=== PATIENT | female | born 1940 | race Caucasian/White ===

== ENCOUNTER 2016-07-17 21:46 | Inpatient (IN) | payer OTHER ==
--- NOTE | 2016-07-17 22:03 | EDPHY ---
H & P Stated Complaint: abd pain, n/V, bloody stools HPI/ROS: HPI CHIEF COMPLAINT: Nausea, vomiting, abdominal pain, bright red blood per rectum HISTORY OF PRESENT ILLNESS: This patient very pleasant 76-year-old female, significant past medical history multiple myeloma, presents emergency room with persistent nausea vomiting diarrhea. Patient tells me that around 9:00 p.m. last night she was up in black cough she thought she got sick from something she ate she had multiple episodes of nonbilious nonbloody vomiting and then started having watery diarrhea. The nausea vomiting and diarrhea has persisted throughout today multiple episodes she then started having blood per rectum bright red blood when she wipes and then also noted darker blood in the bottom of the toilet. She denies black tarry stools. She does endorse abdominal pain most focally located in left lower quadrant. No history of GI bleed, no history of diverticulitis or diverticulosis. Past Medical History: Multiple myeloma Past Surgical History: Cystocele surgery Social History: denies use of drugs alcohol tobacco products, lives locally in our [place] Family History: Noncontributory ROS REVIEW OF SYSTEMS: A comprehensive 10 point review of systems is otherwise negative aside from elements mentioned in the history of present illness. Exam Constitutional triage nursing summary reviewed, vital signs reviewed, awake/ alert. Eyes normal conjunctivae and sclera, EOMI, PERRLA. HENT normal inspection, atraumatic, moist mucus membranes, no epistaxis, neck supple/ no meningismus, no raccoon eyes. Respiratory clear to auscultation bilaterally, normal breath sounds, no respiratory distress, no wheezing. Cardiovascular rate normal, regular rhythm, no murmur, no edema, distal pulses normal. Gastrointestinal focal tenderness in left lower quadrant , no rebound, no guarding, normal bowel sounds, no distension, no pulsatile mass. Genitourinary no CVA tenderness. Musculoskeletal no midline vertebral tenderness, full range of motion, no calf swelling, no tenderness of extremities, no meningismus, good pulses, neurovascularly intact. Skin pink, warm, & dry, no rash, skin atraumatic. Neurologic awake, alert and oriented x 3, AAOx3, moves all 4 extremities equally, motor intact, sensory intact, CN II-XII intact, normal cerebellar, normal vision, normal speech. Psychiatric normal mood/affect. Heme/Lymph/Immune no lymphadenopathy. Differential diagnosis includes but is not limited to and in no particular order : diverticulitis, diverticulosis Bowel obstruction, appendicitis, gallbladder disease, diverticulitis, colitis, enteritis, perforated viscus, gastritis, GERD , esophagitis, urinary tract infection, pyelonephritis, kidney stones Medical Decision Making: This patient had an IV established will obtain blood work, rectal exam, CT scan abdomen pelvis with IV contrast Re-evaluation: 2323; patient is currently in CT getting a CT abdomen pelvis with IV contrast to rule out acute diverticulitis. She is focally tender left lower quadrant. This may be causing her abdominal pain, white count and blood in her stool. It is noted the lactic acid is elevated 2.9. She received 2 L of normal saline. Lactic acid will be repeated. CT scan of the abdomen pelvis with IV contrast The results of the study are shows significant descending colon and rectosigmoid colon colitis, does not believe to be ischemic given how well the aorta looks. (minimally calcified) The study was read by Dr. Nicholas I viewed the images myself on the PACS system. 2351; I did update this patient her at bedside and explained that she has significant colitis on her CT scan. She understands she will need to be admitted to the hospital for IV antibiotics IV fluids bowel rest nothing by mouth. I spoke with the hospital service Dr. Baker who agrees to admit this patient. I did order stool studies of note this patient does tell me that she has recently on antibiotics for dental procedure it is possible that she has significant colitis with C diff. I have ordered a C diff study. At this time she is hemodynamically stable no acute distress resting comfortably she does complain of nausea I have ordered her another round of Phenergan. Source: Patient - Personal History Current Tetanus Diphtheria and Acellular Pertussis (TDAP): Yes - Medical/Surgical History Hx Asthma: No Hx Chronic Respiratory Disease: No Hx Diabetes: No Hx Cardiac Disease: No Hx Renal Disease: No Hx Cirrhosis: No Hx Alcoholism: No Hx HIV/AIDS: No Hx Splenectomy or Spleen Trauma: No Other PMH: mutlipe myaloma. dvt left leg. cystocele repair 2017 - Social History Smoking Status: Never smoked Constitutional: Initial Vital Signs Temperature (C) 37.1 C 07/17/16 21:50 Heart Rate 91 07/17/16 21:50 Respiratory Rate 20 07/17/16 21:50 Blood Pressure 155/102 H 07/17/16 21:50 O2 Sat (%) 91 L 07/17/16 21:50 O2 Delivery Mode Room Air Allergies/Adverse Reactions: No Known Allergies Allergy (Unverified 07/17/16 21:50) Home Medications: Medication Instructions Recorded Dexamethasone 07/01/14 Glucosamine Chondroitin Cap 07/01/14 Lisinopril 07/01/14 Lovastatin 07/01/14 Preservision Softgel 07/01/14 Revlimid 07/01/14 Tums 500MG (OTC) 07/01/14 Vitamin D3 07/01/14 Xarelto 15mg (RX) 07/01/14 Zometa 07/01/14 Medical Decision Making - Data Points Laboratory Results: Laboratory Results 07/17/16 22:00 07/17/16 22:00 07/17/16 22:00 WBC 14.93 H 10^3/uL (3.80-9.50) RBC 4.90 10^6/uL (4.18-5.33) Hgb 15.9 g/dL (12.6-16.3) Hct 47.7 H % (38.0-47.0) MCV 97.3 fL (81.5-99.8) MCH 32.4 pg (27.9-34.1) MCHC 33.3 g/dL (32.4-36.7) RDW 14.0 % (11.5-15.2) Plt Count 180 10^3/uL (150-400) MPV 11.3 fL (8.7-11.7) Neut % (Auto) 69.8 % (39.3-74.2) Lymph % (Auto) 12.5 L % (15.0-45.0) Garden % (Auto) 17.1 H % (4.5-13.0) Eos % (Auto) 0.0 L % (0.6-7.6) Baso % (Auto) 0.2 L % (0.3-1.7) Nucleat RBC Rel Count 0.0 % (0.0-0.2) Absolute Neuts (auto) 10.43 H 10^3/uL (1.70-6.50) Absolute Lymphs (auto) 1.86 10^3/uL (1.00-3.00) Absolute Monos (auto) 2.55 H 10^3/uL (0.30-0.80) Absolute Eos (auto) 0.00 L 10^3/uL (0.03-0.40) Absolute Basos (auto) 0.03 10^3/uL (0.02-0.10) Absolute Nucleated RBC 0.00 10^3/uL (0-0.01) Immature Gran % 0.4 % (0.0-1.1) Immature Gran # 0.06 10^3/uL (0.00-0.10) PT 13.5 SEC (12.0-15.0) INR 1.04 (0.83-1.16) APTT 22.4 L SEC (23.0-38.0) VBG Lactic Acid 2.9 H mmol/L (0.7-2.1) Sodium 142 mEq/L (134-144) Potassium 3.6 mEq/L (3.5-5.2) Chloride 106 mEq/L (97-110) Carbon Dioxide 24 mEq/l (22-31) Anion Gap 12 mEq/L (8-16) BUN 18 mg/dL (7-23) Creatinine 0.7 mg/dL (0.6-1.0) Estimated GFR > 60 Glucose 175 H mg/dL (70-100) Calcium 8.8 mg/dL (8.5-10.4) Total Bilirubin 1.4 mg/dL (0.1-1.4) Conjugated Bilirubin 0.1 mg/dL (0.0-0.5) Unconjugated Bilirubin 1.3 H mg/dL (0.0-1.1) AST 15 IU/L (14-46) ALT 30 IU/L (9-52) Alkaline Phosphatase 77 IU/L (38-126) Total Protein 5.9 L g/dL (6.3-8.2) Albumin 3.4 L g/dL (3.5-5.0) Lipase 96.0 IU/L (23-300) Medications Given: Discontinued Medications Sodium Chloride (Ns) 1,000 mls @ 0 mls/hr IV ONCE ONE PRN Reason: Wide Open Stop: 07/17/16 22:08 Last Admin: 07/17/16 22:14 Dose: 1,000 mls Sodium Chloride (Ns) 1,000 mls @ 0 mls/hr IV ONCE ONE PRN Reason: Wide Open Stop: 07/17/16 22:42 Last Admin: 07/17/16 22:43 Dose: 1,000 mls Ondansetron HCl (Zofran) 4 mg IVP EDNOW ONE Stop: 07/17/16 22:08 Last Admin: 07/17/16 22:15 Dose: 4 mg Departure - Departure Disposition: [facility] Acute Clinical Impression: Non-specific colitis Condition: Fair
[2016-07-17] MEDS ORDERED: ONDANSETRON 4 MG/2 ML VIAL IVP ONE (22:07)
[2016-07-17] MEDS ORDERED: NS 1,000 ML IV ONE ×2 (22:07→22:41)
[2016-07-17 22:20] LABS: % IMMATURE GRANULYOCYTES 0.4 % (0.0-1.1); ABSOLUTE IMMATURE GRANULOCYTES 0.06 10^3/uL (0.00-0.10); ADD DIFF? NO; ADD MORPH? NO; ADD SCAN? NO; ATYPICAL LYMPHOCYTE FLAG 0 (0-99); FRAGMENT RBC FLAG 0 (0-99); HEMATOCRIT 47.7 % (38.0-47.0); HEMOGLOBIN 15.9 g/dL (12.6-16.3); LEFT SHIFT FLG 10 (0-99); LIPEMIA HEMOLYSIS FLAG 80 (0-99); MEAN CELL HEMOGLOBIN 32.4 pg (27.9-34.1); MEAN CELL HEMOGLOBIN CONCENTR. 33.3 g/dL (32.4-36.7); MEAN CELL VOLUME 97.3 fL (81.5-99.8); MEAN PLATELET VOLUME 11.3 fL (8.7-11.7); PLATELET CLUMPS FLAG 10 (0-99); PLATELET COUNT 180 10^3/uL (150-400)
[2016-07-17] MEDS ORDERED: IOPAMIDOL (ISOVUE-300) 100 ML BTL IV ONE (22:36)
[2016-07-17 22:42] LABS: ALANINE AMINOTRANSFERASE 30 IU/L (9-52); ALKALINE PHOSPHATASE 77 IU/L (38-126); ASPARTATE AMINOTRANSFERASE 15 IU/L (14-46); BILIRUBIN,TOTAL 1.4 mg/dL (0.1-1.4); BILIRUBIN-CONJUGATED 0.1 mg/dL (0.0-0.5); BILIRUBIN-UNCONJUGATED 1.3 mg/dL (0.0-1.1); CALCIUM 8.8 mg/dL (8.5-10.4)
[2016-07-17 22:47] LABS: APTT 22.4 SEC (23.0-38.0); INR 1.04 (0.83-1.16); PROTIME(PATIENT) 13.5 SEC (12.0-15.0)
[2016-07-17 23:17] LABS: ALBUMIN 3.4 g/dL (3.5-5.0); ANION GAP 12 mEq/L (8-16); CARBON DIOXIDE 24 mEq/l (22-31); CHLORIDE 106 mEq/L (97-110); CREATININE 0.7 mg/dL (0.6-1.0); GLOMERULAR FILTRATION RATE > 60; GLUCOSE 175 mg/dL (70-100); POTASSIUM 3.6 mEq/L (3.5-5.2); SODIUM 142 mEq/L (134-144); TOTAL PROTEIN 5.9 g/dL (6.3-8.2)
[2016-07-17] MEDS ORDERED: CIPROFLOXACIN 400 MG/DEXTROSE 200 ML IV ONE (23:36)
[2016-07-17] MEDS ORDERED: METRONIDAZOLE 500 MG/NACL/100 ML BAG IV ONE (23:46)
[2016-07-17] MEDS ORDERED: PROMETHAZINE HCL 25 MG/ML INJ IVP ONE (23:51)
--- NOTE | 2016-07-18 00:07 | CT ---
CT Scan of the Abdomen and Pelvis (With Contrast) at 2329 hours History: Abdominal pain, left lower quadrant Technique: Axial computed tomographic images of the abdomen and pelvis were obtained with the unevent ful intravenous administration of 80 mL Isovue-300 contrast. No oral or rectal contrast which limits the study. Dose reduction techniques were utilized. CT Abdomen Findings: Lung bases: Linear scarring bilateral lower lobes without pleural effusion Liver: Left lobe of liver peripheral nodular enhancing 4 x 3 cm hemangioma. Subcentimeter cysts in th e right lobe of liver.. Biliary system: No obstruction. Spleen: Normal. Pancreas: Normal. Adrenals: Normal. Kidneys: No solid masses. Questionable mild bilateral hydronephrosis without ureterolithiasis.. Abdominal Aorta: No aneurysm. Circumferential wall thickening of the entire descending and sigmoid colon with pericolonic inflammat ory changes and fluid especially in the paracolic gutter and descending colon region consistent with severe descending and sigmoid nonspecific colitis. No drainable abscess or pneumoperitoneum. CT Pelvis Findings: Circumferential wall thickening of the proximal sigmoid colon. Calcification of t he atrophic uterus versus postsurgical changes. No bladder calculi. Calcified phleboliths in the pelv is. No drainable abscess. No small bowel obstruction. Multiple severe prior compression fractures wit h kyphoplasty's T11, T12, L1, and L4 vertebral bodies. Degenerative anterolisthesis at L3-L4. Impression: 1. Severe nonspecific colitis of the descending and sigmoid colon with pericolonic inflammatory gaspar es. Recommend GI consult and follow-up colonoscopy. 2. No drainable abscess, small bowel obstruction or pneumoperitoneum. 3. Benign hemangioma in the left lobe liver measuring 4 x 3 cm. Findings and recommendations discussed with Emergency Department physician, Dr. Acevedo at 2340 hour, today. Final report concurs with initial preliminary interpretation.
[2016-07-18] MEDS ORDERED: NS 1,000 ML IV ONE (00:30)
[2016-07-18] MEDS ORDERED: ACETAMINOPHEN 325 MG TAB PO PRN (00:38)
[2016-07-18] MEDS ORDERED: ONDANSETRON DISINTEGRATING 4 MG TAB PO PRN (00:38)
[2016-07-18] MEDS ORDERED: PROMETHAZINE HCL 25 MG/ML INJ IVP PRN (00:38)
[2016-07-18] MEDS ORDERED: ONDANSETRON 4 MG/2 ML VIAL IVP PRN (00:38)
--- NOTE | 2016-07-18 01:43 | GHP ---
[f rep st] HISTORY AND PHYSICAL DATE OF ADMISSION: 07/17/2016 CHIEF COMPLAINT: Abdominal pain. HISTORY OF PRESENT ILLNESS: This is a 76-year-old female with a history of multiple myeloma, presents with abdominal pain. This initially started at 9:00 p.m. last night with nausea and vomiting. She had multiple episodes of diarrhea. This turned bloody this morning. She has not been able to keep anything down since this episode began. She has no sick contacts. Possibly a questionable burrito a few days ago. Nobody else is sick around her. She has no history of arrhythmias. No history of inflammatory bowel disease. She tells me she is feeling dizzy, but is not having any shortness of breath or chest pain. PAST MEDICAL/SURGICAL HISTORY: 1. DVT a few years ago, on Xarelto. 2. Multiple myeloma. 3. Hypertension. 4. Hyperlipidemia. 5. Cystocele surgery. MEDICATIONS: Please see medication reconciliation. ALLERGIES: None. FAMILY HISTORY: No multiple myeloma. SOCIAL HISTORY: She is accompanied by her . She does not drink or smoke. REVIEW OF SYSTEMS: Ten-point review of systems is conducted and is negative, except per HPI. PHYSICAL EXAM: VITAL SIGNS: Blood pressure is 140/88, heart rate is 75, respiration rate 16, saturation 91% on room air, temperature is 37.1. GENERAL: The patient is a very pleasant female, who appears comfortable, lying on bed, in no acute distress. HEENT shows her to be atraumatic, normocephalic. CARDIOVASCULAR: Regular rate and rhythm. No murmurs, rubs, or gallops. PULMONARY: Lungs are clear bilaterally. ABDOMEN shows her to have normal bowel sounds. She is soft in all 4 quadrants. She is tender to palpation, mostly in the left abdomen. She has no rebound or guarding. Non-peritoneal abdomen. SKIN: No rash. : no [place]. NEUROLOGIC shows her to be alert and oriented x3. She is moving all extremities. PSYCHIATRIC: Normal mood and affect. LABS: White count is 14.9. INR is 1. Venous lactate is 2.9, repeat is also 2.9. Basic metabolic panel is normal. LFTs are relatively unremarkable. DATA: 1. I discussed with Dr. Acevedo. We will admit to med/surg. 2. I personally viewed and interpreted her abdominal CT scan as well as viewed Dr. Nicholas's report. It shows left-sided descending colitis which is severe with no drainable abscess. No pneumoperitoneum. She has a benign liver hemangioma. ASSESSMENT AND PLAN: A 76-year-old female presents with colitis. 1. Colitis: Suspect that this will be infectious. Stool studies have been sent including Clostridium difficile and PCR. Also, consider ischemic, though it does not appear ischemic on by Dr. Nicholas's interpretation. Consider inflammatory, though the time course for inflammatory did not seem to fit. She will be empirically treated with antibiotics. Her persistent lactic acidosis is concerning. If this does not decrease, we will consult General Surgery, though her abdominal exam is reassuring. I note that she is on immunosuppressants. 2. Multiple myeloma: She is on Revlimid and dexamethasone. We will hold these for now. We will monitor for signs of adrenal insufficiency, which she does not currently have. 3. History of a deep venous thrombosis: This occurred on Revlimid. Given acute illness, I think it is reasonable to bridge her with heparin for now. I have written her to have Lovenox starting tomorrow morning at full treatment doses. 4. Hypertension. 5. Hyperlipidemia. 6. Code status is full. She does have a living will. ADDENDUM: Lactate rising slowly despite IVF. Dr Javed consulted - may need colectomy. Hold lovenox, transfer to SDU, follow lactates. /[id number]/MODL MTDD
--- NOTE | 2016-07-18 03:29 | SOAPPROG ---
SOAP Progress Note Assessment/Plan: Assessment: 76 FEMALE WITH SEVERE LEFT COLITIS SEEN ON CT WITH ELEVATED LACTATE AND WBC 15K TENDER RLQ/ HAVING BLOODY STOOLS/ NO PRIOR HX ON CHEMO FOR MYELOMA PREVIOUS ISAÍAS AND BSO WITH CYSTOCELE, TKA/ NO CARDIAC HX AND NO AFIB EXCELLENT PULSES THRUOUT/ CT SHOWS OCCLUDED SHARMIN I BELIEVE HIGH RISK SHE WILL NEED COLECTOMY PROBABLE ISCHEMIC COLITIS Plan: OBS ON ABX/ IVS/ NPO/ PROB FLEX SIG 07/18/16 03:23 Objective: Vital Signs Temp Pulse Resp BP Pulse Ox 37.1 C 72 16 117/70 95 07/17/16 21:50 07/18/16 01:30 07/18/16 01:30 07/18/16 01:30 07/18/16 01:30 07/16/16 07/17/16 07/18/16 05:59 05:59 05:59 Intake Total 1999 Balance 1999 PT 13.5 SEC (12.0-15.0) 07/17/16 22:00 INR 1.04 (0.83-1.16) 07/17/16 22:00 ICD10 Worksheet Patient Problems: Problems Problem Status Diagnosed Colitis Acute
[2016-07-18 03:39] LABS: COLOR YELLOW; LEUKOCYTE ESTERASE,URINE NEGATIVE (NEGATIVE); NITRITE,URINE NEGATIVE (NEGATIVE)
[2016-07-18 03:48] LABS: MUCUS TRACE /lpf (NONE-1+)
[2016-07-18 05:38] LABS: % IMMATURE GRANULYOCYTES 0.2 % (0.0-1.1); ABSOLUTE IMMATURE GRANULOCYTES 0.02 10^3/uL (0.00-0.10); ADD DIFF? NO; ADD MORPH? NO; ADD SCAN? NO; ATYPICAL LYMPHOCYTE FLAG 0 (0-99); FRAGMENT RBC FLAG 0 (0-99); HEMATOCRIT 38.4 % (38.0-47.0); HEMOGLOBIN 12.8 g/dL (12.6-16.3); LEFT SHIFT FLG 10 (0-99); LIPEMIA HEMOLYSIS FLAG 80 (0-99); MEAN CELL HEMOGLOBIN CONCENTR. 33.3 g/dL (32.4-36.7); PLATELET CLUMPS FLAG 0 (0-99); PLATELET COUNT 127 10^3/uL (150-400); RED BLOOD CELL COUNT 3.88 10^6/uL (4.18-5.33); RED CELL DISTRIBUTION WIDTH 14.3 % (11.5-15.2)
[2016-07-18 06:02] LABS: ALANINE AMINOTRANSFERASE 26 IU/L (9-52); ALBUMIN 2.5 g/dL (3.5-5.0); ALKALINE PHOSPHATASE 52 IU/L (38-126); ANION GAP 6 mEq/L (8-16); ASPARTATE AMINOTRANSFERASE 12 IU/L (14-46); CALCIUM 6.8 mg/dL (8.5-10.4); CARBON DIOXIDE 26 mEq/l (22-31); CHLORIDE 111 mEq/L (97-110); CREATININE 0.6 mg/dL (0.6-1.0); GLOMERULAR FILTRATION RATE > 60; GLUCOSE 110 mg/dL (70-100); POTASSIUM 3.4 mEq/L (3.5-5.2); SODIUM 143 mEq/L (134-144); TOTAL PROTEIN 4.6 g/dL (6.3-8.2)
[2016-07-18] MEDS: ERTAPENEM 1 GM in NS 100 ML IV SCH (08:47)
[2016-07-18] MEDS ORDERED: ENOXAPARIN 80 MG/0.8 ML SYR SC SCH (09:00)
--- NOTE | 2016-07-18 09:39 | HOSPPROG ---
Hospitalist Progress Note Assessment/Plan: * sudden left-sided abdominal pain with severe colitis on CT scan * symptoms would seem to be consistent with ischemic colitis although patient seems to be improving. Her lactate is now normalized and her exam is fairly benign. * Acute infectious etiologies are also possible * I discussed the case with Gastroenterology will come see the patient consider flex sig. * I think we can monitor her closely for now rather than immediate surgery but will discuss with surgery * history of multiple myeloma * holding chemotherapy * recent steroid use with chemotherapy * will try to find out how long she has been on this. * She is off of it for now which is reasonable considering possible surgery * will continue to watch closely for any adrenal insufficiency * history of DVT * holding Lovenox currently until we discuss with surgery and GI determined if endoscopy will be done * Addendum * discussed case with Dr Campbell - says Rivlamed can cause thrombotic events and she will be taken off it. Subjective: Having some left pleural abdominal pain but not severe Objective: Vital Signs Temp Pulse Resp BP Pulse Ox 36.8 C 68 13 107/64 100 07/18/16 07:18 07/18/16 07:18 07/18/16 07:18 07/18/16 07:18 07/18/16 07:18 Laboratory Results 07/18/16 05:25 07/18/16 05:25 07/17/16 07/18/16 07/19/16 05:59 05:59 05:59 Intake Total 3150 Balance 3150 PT 13.5 SEC (12.0-15.0) 07/17/16 22:00 INR 1.04 (0.83-1.16) 07/17/16 22:00 - Physical Exam Constitutional: no apparent distress, appears nourished, not in pain Eyes: anicteric sclera, EOMI Ears, Nose, Mouth, Throat: moist mucous membranes, hearing normal, ears appear normal Cardiovascular: regular rate and rhythym, no murmur, rub, or gallop Gastrointestinal: normoactive bowel sounds, other ( mild left sided tenderness no rebound or guarding) Skin: warm Neurologic: AAOx3 Psychiatric: interacting appropriately, not anxious, not encephalopathic, thought process linear ICD10 Worksheet Patient Problems: Problems Problem Status Diagnosed Colitis Acute
--- NOTE | 2016-07-18 10:08 | SOAPPROG ---
SOAP Progress Note Assessment/Plan: Assessment: 76yo female with colitis, multiple myeloma feel better, have not passed any gas PE awake alert, appears very comfortable chest CTA B/L abdomen soft, appears distended but patient reports that it appears normal to her, her baseline. Bowel sounds upon auscultation. labs improved (lactate, WBC) Plan: appreciate pending GI consult, will continue to follow closely, discuss with Dr Javed 07/18/16 10:05 Objective: Vital Signs Temp Pulse Resp BP Pulse Ox 36.8 C 68 13 107/64 100 07/18/16 07:18 07/18/16 07:18 07/18/16 07:18 07/18/16 07:18 07/18/16 07:18 Laboratory Results 07/18/16 05:25 07/18/16 05:25 07/17/16 07/18/16 07/19/16 05:59 05:59 05:59 Intake Total 3150 Balance 3150 PT 13.5 SEC (12.0-15.0) 07/17/16 22:00 INR 1.04 (0.83-1.16) 07/17/16 22:00 ICD10 Worksheet Patient Problems: Problems Problem Status Diagnosed Colitis Acute
[2016-07-18] MEDS: NS 1,000 ML IV SCH (12:07)
--- NOTE | 2016-07-18 13:20 | GCON ---
[f rep st] CONSULTATION DATE OF CONSULTATION: 07/18/2016 REFERRING PHYSICIAN: Adam Rosado MD CHIEF COMPLAINT: Abdominal pain. HISTORY OF PRESENT ILLNESS: I am asked to see this patient in consultation by Dr. Rosado for the geoffrey benson complaint of abdominal pain. As you know, she is a pleasant 76-year-old, who generally has issues more with constipation, was in her usual state of good health until 2 days ago when she developed kisha e dizziness, and then this was followed by some abdominal pain and bloody diarrhea. She states that the pain was not severe, but she felt it on the left side. Notes that diarrhea is generally uncommon for her. She has never had issues with bleeding before. She has had a colonoscopy by my partner, Olena Costa, a few years ago, although the results are not immediately available. She states that this w as normal. The patient does have a history of blood clotting with DVT and is on Xarelto. She has un derlying multiple myeloma. Today, she feels overall better, although still passing blood. There is no family history of inflammatory bowel disease. The patient has no history of IBD. ALLERGIES: None. CURRENT MEDICATIONS: The patient, in the hospital, is receiving Tylenol, ertapenem, lisinopril, Zofr an, Pravachol, promethazine p.r.n. OUTPATIENT MEDICATIONS: Include lovastatin, lisinopril, glucosamine, Decadron, Revlimid, vitamin D, calcium, Xarelto, and Estrace. PAST MEDICAL HISTORY: Notable for multiple myeloma, DVT a few years ago, on Xarelto, hypertension, h yperlipidemia, cystocele surgery. FAMILY HISTORY: Negative for colon cancer or inflammatory bowel disease. SOCIAL HISTORY: Does not drink or smoke. REVIEW OF SYSTEMS: Review of 10 systems, including general, psych, HEENT, cardiovascular, pulmonary, renal, hematologic, musculoskeletal, derm, neurologic discussed and otherwise negative except noted above. PHYSICAL EXAMINATION: VITAL SIGNS: Afebrile at 36.8, BP 107/64, pulse 68. HEENT: PERRLA. EOMI: No scleral icterus. Oropharynx is normal. NECK: Supple without lymphadenopathy. No thyromegaly. CARDIAC: Regular rate and rhythm, S1, S2 normal. PMI detected in normal location. Chest: Clear to auscultation bilaterally, normal chest excursion. ABDOMEN: Slightly distended, but soft. There is mild tenderness to palpation in the left upper quadrant, but no rebound. EXTREMITIES: Normal. WARREN ROLOGICAL: Nonfocal. IMAGING: CT scan from 07/17/2016 shows severe nonspecific colitis involving the descending and sigmo id colon with pericolonic inflammatory changes. No abscess. LABORATORY DATA: Today, BUN and creatinine are 13.6, sodium 143, potassium 2.4, AST 12, ALT 26, jakub line phosphatase 52, total bilirubin I.0. Pro time is 13.5 with an INR of 1.04. Hematocrit is 38.4 with hemoglobin of 12.8, white count 8.37, platelets 127. ASSESSMENT AND PLAN: Patient with acute onset of abdominal pain followed by bloody diarrhea with inf lammatory changes involving the sigmoid and descending colon on CT scan. I think most likely, this r epresents ischemic colitis. The patient does have underlying multiple myeloma and hypercoagulable st ate, although she has been on Xarelto. Often, ischemic colitis is not embolic, but may be related to vascular spasm. Clinically, she is doing much better today, although we will need to monitor closel y. Overall, she would be high risk for endoscopy, and generally prefer to avoid endoscopy in the set ting of acute ischemia due to increased risk for complications such as perforation, and if she clinic ally responds to supportive care would postpone colonoscopy, however, if her condition worsens we cou ld consider a partial flexible sigmoidoscopy, if this is thought to be helpful, although if her condi tion worsens, we will need to consider surgical options. I would favor holding Xarelto for now, as s he is still bleeding, but would agree to Lovenox in the meantime, as we monitor her clinically. We w ill follow. Thank you for this consult. /[id number]/MODL
--- NOTE | 2016-07-18 18:55 | CT ---
CT Head Without Contrast, 18:34 History: Double vision, dizziness, lightheadedness. Technique: Noncontrast images through the head. Soft tissue and bone window evaluation is performed. Dose reduction techniques were utilized. Findings: There is asymmetric hypodensity in the anterior inferior right cerebellum that may represen t evidence of a cerebellar infarction or potentially an occult cerebellar mass lesion. There is no ev idence for hemorrhage, hydrocephalus or abnormal intracranial calcification. No subarachnoid blood is identified. There is no midline shift. The ambient cistern is patent. Bone window evaluation reveals normally aerated paranasal and mastoid sinuses and both middle ears. There is no evidence of pneumoc ephalus. There are multiple small punched out holes in the calvarium raising the possibility of multi ple myeloma. Impression: 1. Possible right anterior inferior cerebellar ischemic infarction. Consider MRI for furt her evaluation. 2. Lytic calvarial lesions raising the possibility of multiple myeloma vs lytic metastatic disease of other etiology. Results called to the patient's 2N nurse at 18:50 PM Final results are concordant with the initial interpretation. General information for patients regarding this examination can be found at [email or web address]. If you have questions or comments about this report, please contact me at [phone] (hospital) or [phone] (cell).
--- NOTE | 2016-07-18 19:58 | HOSPPROG ---
Hospitalist Progress Note Assessment/Plan: cross cover: Called by nursing with CT scan showing concerns for possible ischemic stroke. Met with patient, she has been having double vision all day today, possibly yesterday too. No numbness or weakness. Double vision improves if she looks with only one eye, on either side. Also having active GI bleeding. Not TPA candidate. Sxs fairly mild. Head CT equivocal. Ordered brain MRI for further evaluation, explained this to patient and her . Objective: Vital Signs Temp Pulse Resp BP Pulse Ox 36.6 C 72 22 H 116/75 96 07/18/16 16:00 07/18/16 16:00 07/18/16 16:00 07/18/16 16:00 07/18/16 16:00 Microbiology 07/18/16 11:06 Gastrointestinal Tract Panel (PCR) - Final Stool Laboratory Results 07/18/16 05:25 07/18/16 05:25 07/17/16 07/18/16 07/19/16 05:59 05:59 05:59 Intake Total 3150 1448 Balance 3150 1448 PT 13.5 SEC (12.0-15.0) 07/17/16 22:00 INR 1.04 (0.83-1.16) 07/17/16 22:00 ICD10 Worksheet Patient Problems: Problems Problem Status Diagnosed Colitis Acute
--- NOTE | 2016-07-18 23:06 | MR ---
MRI brain without contrast. HISTORY: Double vision. Possible CVA on head CT. COMPARISON: CT performed earlier today. TECHNIQUE: MRI is performed of the brain using a 3 [employer] MRI system. Sagittal and axial imaging was o btained with standard imaging sequences. FINDINGS: There are a few small foci of abnormal signal intensity in the deep hemispheric and subcort ical white matter bilaterally, supratentorial. These are visualized a small foci of increased signal intensity on FLAIR and T2-weighted imaging. No evidence for mass effect or diffusion restriction. No other findings for intracranial mass, hemorrhage, or infarct. The ventricles, sulci, and cisterns are within normal limits for the patient's age. No evidence for an extra-axial fluid collection. Possibl e subtle lesion seen in the skull corresponding to the lytic lesion seen on CT, nonspecific. IMPRESSION: 1. Few small foci of abnormal signal intensity deep hemispheric white matter bilaterally which are no nspecific and can be seen with small vessel ischemic disease. No evidence for acute infarct. 2. Possible skull lesions corresponding to the lytic lesion seen on CT with differential given on the prior CT report.
[2016-07-19 06:33] LABS: % IMMATURE GRANULYOCYTES 0.4 % (0.0-1.1); ABSOLUTE IMMATURE GRANULOCYTES 0.03 10^3/uL (0.00-0.10); ADD DIFF? NO; ADD MORPH? NO; ADD SCAN? NO; ATYPICAL LYMPHOCYTE FLAG 0 (0-99); FRAGMENT RBC FLAG 0 (0-99); HEMATOCRIT 37.3 % (38.0-47.0); HEMOGLOBIN 12.3 g/dL (12.6-16.3); LEFT SHIFT FLG 0 (0-99); LIPEMIA HEMOLYSIS FLAG 80 (0-99); MEAN CELL HEMOGLOBIN 32.7 pg (27.9-34.1); MEAN CELL VOLUME 99.2 fL (81.5-99.8); MEAN PLATELET VOLUME 10.6 fL (8.7-11.7); PLATELET CLUMPS FLAG 0 (0-99); PLATELET COUNT 107 10^3/uL (150-400); RED BLOOD CELL COUNT 3.76 10^6/uL (4.18-5.33); RED CELL DISTRIBUTION WIDTH 14.1 % (11.5-15.2)
[2016-07-19 07:32] LABS: ALANINE AMINOTRANSFERASE 25 IU/L (9-52); ALBUMIN 2.4 g/dL (3.5-5.0); ALKALINE PHOSPHATASE 56 IU/L (38-126); ANION GAP 7 mEq/L (8-16); ASPARTATE AMINOTRANSFERASE 10 IU/L (14-46); BILIRUBIN,TOTAL 0.9 mg/dL (0.1-1.4); CALCIUM 6.7 mg/dL (8.5-10.4); CARBON DIOXIDE 27 mEq/l (22-31); CHLORIDE 107 mEq/L (97-110); CREATININE 0.6 mg/dL (0.6-1.0); GLOMERULAR FILTRATION RATE > 60; GLUCOSE 77 mg/dL (70-100); SODIUM 141 mEq/L (134-144); TOTAL PROTEIN 4.6 g/dL (6.3-8.2)
--- NOTE | 2016-07-19 08:03 | SOAPPROG ---
SOAP Progress Note Assessment/Plan: Assessment: 76 FEMALE WITH SEVERE LEFT COLITIS SEEN ON CT WITH ELEVATED LACTATE AND WBC 15K TENDER RLQ/ HAVING BLOODY STOOLS/ NO PRIOR HX ON CHEMO FOR MYELOMA PREVIOUS ISAÍAS AND BSO WITH CYSTOCELE, TKA/ NO CARDIAC HX AND NO AFIB EXCELLENT PULSES THRUOUT/ CT SHOWS OCCLUDED SHARMIN I BELIEVE HIGH RISK SHE WILL NEED COLECTOMY PROBABLE ISCHEMIC COLITIS Plan: OBS ON ABX/ IVS/ NPO/ PROB FLEX SIG 07/18/16 03:23 07/19/16 07:58 AFEBRILE/ ABD STABLE/ WBC IMPROVED/ UNDERGOING VO FOR NEURO SX Objective: Vital Signs Temp Pulse Resp BP Pulse Ox 36.6 C 69 17 93/50 L 94 07/19/16 07:35 07/19/16 07:35 07/19/16 07:35 07/19/16 07:35 07/19/16 07:35 Microbiology 07/18/16 11:06 Gastrointestinal Tract Panel (PCR) - Final Stool Laboratory Results 07/19/16 06:25 07/19/16 06:25 07/18/16 07/19/16 07/20/16 05:59 05:59 05:59 Intake Total 3150 2698 Balance 3150 2698 PT 13.5 SEC (12.0-15.0) 07/17/16 22:00 INR 1.04 (0.83-1.16) 07/17/16 22:00 ICD10 Worksheet Patient Problems: Problems Problem Status Diagnosed Colitis Acute
[2016-07-19] MEDS: LISINOPRIL 20 MG TAB PO SCH (08:28)
[2016-07-19] MEDS: ERTAPENEM 1 GM in NS 100 ML IV SCH (08:28)
[2016-07-19] MEDS: PRAVASTATIN SODIUM 20 MG TAB PO SCH (08:30)
[2016-07-19] MEDS ORDERED: NON-FORMULARY NEW DRUG (Lovastatin [Lovastatin] 20 MG) PO SCH (09:00)
[2016-07-19] MEDS: NS 1,000 ML IV SCH ×2 (09:42→21:27)
--- NOTE | 2016-07-19 11:49 | SOAPPROG ---
SOAP Progress Note Assessment/Plan: Assessment: Pt with acute diarrhea with abdominal pain and bleeding which has resoled clinically. CT scan with segmental colitis. Stool studies negative suspect ischemic but also could be from recent chemotherapy per onc and this medication has been stopped. Urgent Flex sig now may be difficult given chemotherapy precautions as well as overall high risk. Neurologic sxm w/u in progress Plan: Monitor clinically. Overall much better would prefer to avoid invasive testing such as flex sig as long as sxm resolve. Please call if she has recurrent symptoms or if flex sig/colonoscopy desired this admission 07/19/16 11:43 Subjective: CC abd pain diarrhea pt states no diarrhea and pain resolved. She has seen no brbpr today Objective: Vital Signs Temp Pulse Resp BP Pulse Ox 36.6 C 70 15 118/61 94 07/19/16 07:35 07/19/16 08:30 07/19/16 08:30 07/19/16 08:30 07/19/16 08:30 Microbiology 07/18/16 11:06 Gastrointestinal Tract Panel (PCR) - Final Stool Laboratory Results 07/19/16 06:25 07/19/16 06:25 07/18/16 07/19/16 07/20/16 05:59 05:59 05:59 Intake Total 3150 2698 Balance 3150 2698 PT 13.5 SEC (12.0-15.0) 07/17/16 22:00 INR 1.04 (0.83-1.16) 07/17/16 22:00 Physical Exam - Physical Exam General Appearance: alert, no apparent distress Respiratory: lungs clear, normal breath sounds Cardiac/Chest: regular rate, rhythm, No diastolic murmur Abdomen: non-tender, soft ICD10 Worksheet Patient Problems: Problems Problem Status Diagnosed Colitis Acute
--- NOTE | 2016-07-19 13:26 | HOSPPROG ---
Hospitalist Progress Note Assessment/Plan: # Acute severe colitis - CT ( personally reviewed and interpreted) severe colitis of the descending and sigmoid colon gastroenterology consulting and not anxious for invasive study secondary to risk of perforation- clinically improved today - continue IV antibiotics - continue clear liquid diet # acute double vision- new diagnosis overnight- MRI brain (personally reviewed and interpreted) no evidence of acute infarct or mass symptom slightly improving this morning however concerning for possible neuropathy related to multiple myeloma - consulting Neurology for evaluation # history of multiple myeloma- being treated outpatient with Revlimid - holding chemotherapy # recent steroid use with chemotherapy- held since admission - will continue to watch closely for any adrenal insufficiency # history of DVT- holding Xarelto secondary to acute GI bleed with colitis- oxygen saturations 94% on 2L case discussed with Dr Campbell - says Revlimid can cause thrombotic events and she will be taken off it. - GI is cleared for Lovenox prophylaxis # prophylaxis Lovenox # diet clear liquids advance per surgery and Gastroenterology # disposition greater than 2 midnights patient requiring IV fluids and close neurologic monitoring I have discussed the case with Dr. Kirkpatrick from Neurology he will consult and leave recommendations related to the patient's acute double vision Subjective: double vision improving this morning Objective: Vital Signs Temp Pulse Resp BP Pulse Ox 36.3 C 69 20 113/68 94 07/19/16 11:57 07/19/16 11:57 07/19/16 11:57 07/19/16 11:57 07/19/16 11:57 Microbiology 07/18/16 11:06 Gastrointestinal Tract Panel (PCR) - Final Stool Laboratory Results 07/19/16 06:25 07/19/16 06:25 07/18/16 07/19/16 07/20/16 05:59 05:59 05:59 Intake Total 3150 2698 Balance 3150 2698 PT 13.5 SEC (12.0-15.0) 07/17/16 22:00 INR 1.04 (0.83-1.16) 07/17/16 22:00 - Physical Exam Constitutional: appears nourished Eyes: anicteric sclera Ears, Nose, Mouth, Throat: moist mucous membranes Cardiovascular: regular rate and rhythym Respiratory: no respiratory distress, no rales or rhonchi Gastrointestinal: normoactive bowel sounds, soft, non-tender abdomen Genitourinary: no bladder fullness Skin: warm, normal color Musculoskeletal: No asymmetric calves Neurologic: AAOx3, sensation intact bilaterally, No weakness Psychiatric: interacting appropriately Lymph, Heme, Immunologic: no cervical LAD ICD10 Worksheet Patient Problems: Problems Problem Status Diagnosed Colitis Acute
[2016-07-19 16:38] LABS: INR 1.09 (0.83-1.16)
[2016-07-19] MEDS ORDERED: NA BICARBONATE 50 MEQ/50 ML VIAL ONE (17:08)
[2016-07-19] MEDS ORDERED: LIDOCAINE 1% 30 ML SDV ONE (17:08)
--- NOTE | 2016-07-19 18:25 | GCON ---
[f rep st] CONSULTATION NEUROLOGY CONSULT REFERRING PHYSICIAN: Britany Russell MD CHIEF COMPLAINT: Double vision. HISTORY OF PRESENT ILLNESS: Ms. Zaidi is a very pleasant 76-year-old lady, who has multiple myeloma, managed by Dr. Clinton Campbell as an outpatient. She had been on a chemotherapy agent for the last 3 years approximately, Revlimid. However, she developed bright red blood per rectum and her last dose was probably Monday. She did take it Monday, but vomited afterwards. Because of nausea, GI bleeding, she came to the emergency department. She had been on Xarelto for a DVT that was stopped due to the GI bleeding, and colitis was diagnosed. This has been treated here in the hospital. While the colitis has been treated, she developed double vision yesterday, she thinks around midmorning. She describes binocular double vision. When she covered 1 eye, it went away. It could be either eye she covered and the double vision resolved with both eyes. It was a horizontal with perhaps a vertical component double vision. Over this morning, she noticed it was gone but by this afternoon, it has come back in a mild fashion. There have been no other cranial nerve symptoms, such as facial numbness, weakness. No cognitive symptoms. No ataxia. No other motor or sensory symptoms in her trunk or limbs. It is a very isolated diplopia that is waxing and waning. She had an MRI brain, which showed no acute infarct and some old skull lesions, lytic type, nonspecific white matter changes. No acute stroke. REVIEW OF SYSTEMS: Ten-point review of system was performed and only pertinent to HPI. For past medical history, social history, family history, current medications, allergies, please see the admission history and physical by Dr. Baker. PHYSICAL EXAM: VITAL SIGNS: Blood pressure 113/68, temperature 36.3, O2 sats 94%, heart rate 69. GENERAL: No acute distress, very pleasant. HIGHER MENTAL FUNCTION: No aphasia, awake and alert, lucid. Cranial nerves: The patient subjectively felt she had double vision with distant vision, but it resolved with near-vision. I could not detect any formal weakness with extraocular movements. Her right eye appeared perhaps slightly abducted as if there was some weakness with abduction however, this was an inconsistent observation. No formal weakness noted on testing. No nystagmus. No other abnormalities on cranial nerves 2 through 7, 11, and 12. Motor and sensory were normal. Coordination was normal. Toes were downgoing bilaterally. IMPRESSION AND PLAN: 1. Diplopia. 2. Multiple myeloma. The patient's diplopia is not entirely clear. MRI does not show a stroke. I called her primary oncologist, Dr. Campbell, who does not feel that her chemotherapy would be causative for a cranial neuropathy. We did discuss the rare possibility of myeloma infiltrating the [employer] causing cranial neuropathy. Therefore, I have ordered a high-volume lumbar puncture to check for cytology. We will also check myasthenia gravis antibodies as she does have a waxing and waning temporal profile to these symptoms. Mild isolated diplopia without other symptoms would be unlikely to be caused by paraneoplastic syndrome. Certainly, that could be reconsidered if she were to develop other symptoms or signs. I have communicated our plan with Dr. Campbell and Dr. Russell of [facility]. Will follow up on the above in terms of followup management. Thank you for this consultation. /[id number]/MODL MTDD
[2016-07-19 18:39] LABS: PROTEIN, CSF 56 mg/dL (12-60)
[2016-07-19 18:43] LABS: CSF APPEARANCE CLEAR (CLEAR); CSF COLOR COLORLESS (COLORLESS); CSF SUPERNATANT COLORLESS (COLORLESS); WBC, CSF 0 /mm3 (0-5)
--- NOTE | 2016-07-19 19:06 | DX ---
Fluoroscopically-guided Lumbar Puncture 17:37 hours Indication: Diplopia. Multiple myeloma. Crosscutting Measure #226: Current tobacco user: No. Informed consent was given, which included the risk of spinal headache, infection, aseptic meningitis and bleeding. The patient agreed to proceed. Technique: The left L2-L3 interlaminar space was identified with preprocedural fluoroscopy and the sk in was marked. The skin was sterilely prepped and draped. The skin and deep soft tissues were numbed with 1% lidocaine. Under direct fluoroscopy, a 22-gauge Geno needle was introduced into the CSF space. 9 mL of clear fluid were obtained and sent to the Laboratory in four aliquots. The patient andrea erated the procedure well and was returned to the [facility] without complication. Impression: Successful diagnostic lumbar puncture. Specimens sent to the Laboratory.
[2016-07-20 06:03] LABS: HEMATOCRIT 36.3 % (38.0-47.0); HEMOGLOBIN 11.9 g/dL (12.6-16.3); MEAN CELL HEMOGLOBIN 32.4 pg (27.9-34.1); MEAN CELL HEMOGLOBIN CONCENTR. 32.8 g/dL (32.4-36.7); MEAN CELL VOLUME 98.9 fL (81.5-99.8); RED BLOOD CELL COUNT 3.67 10^6/uL (4.18-5.33); RED CELL DISTRIBUTION WIDTH 13.7 % (11.5-15.2)
[2016-07-20 06:22] LABS: ANION GAP 5 mEq/L (8-16); CALCIUM 6.4 mg/dL (8.5-10.4); CARBON DIOXIDE 25 mEq/l (22-31); CHLORIDE 110 mEq/L (97-110); CREATININE 0.6 mg/dL (0.6-1.0); GLOMERULAR FILTRATION RATE > 60; GLUCOSE 91 mg/dL (70-100); SODIUM 140 mEq/L (134-144)
[2016-07-20] MEDS: PRAVASTATIN SODIUM 20 MG TAB PO SCH (07:25)
[2016-07-20] MEDS: LISINOPRIL 20 MG TAB PO SCH (07:25)
[2016-07-20] MEDS: ERTAPENEM 1 GM in NS 100 ML IV SCH (07:30)
--- NOTE | 2016-07-20 08:55 | SOAPPROG ---
SOAP Progress Note Assessment/Plan: Assessment/plan: 76 Y F c multiple myeloma. Admitted c abd pain, bloody stools, leukocytosis, elevated lactate. Likely ischemic colitis now improved. Abdominal exam is benign. Per RN, +BM without gross blood per RN. WBCs normalized. Would recommend flex sig vs colonoscopy as outpatient--defer to GI. Diplopia. Medicine and Neuro following. 07/20/16 08:51 Objective: Vital Signs Temp Pulse Resp BP Pulse Ox 36.6 C 73 24 H 122/93 H 97 07/20/16 07:38 07/20/16 07:38 07/20/16 07:38 07/20/16 07:38 07/20/16 07:38 Laboratory Results 07/20/16 05:31 07/20/16 05:31 07/19/16 07/20/16 07/21/16 05:59 05:59 05:59 Intake Total 2698 4561 Balance 2698 4561 PT 14.0 SEC (12.0-15.0) 07/19/16 16:05 INR 1.09 (0.83-1.16) 07/19/16 16:05 ICD10 Worksheet Patient Problems: Problems Problem Status Diagnosed Colitis Acute
--- NOTE | 2016-07-20 15:28 | NEUROPROG ---
Assessment: 1. diplopia, resolved the patient's CSF evaluation showed 0 white cells, normal glucose and normal protein. This would not be consistent with inflammation in the [employer] or carcinomatosis. We did send fluid for cytology. this can be followed up as an outpatient by her oncologist, Dr. Campbell. I spoke to him yesterday about the plan. the likelihood of the cytology being abnormal is very low at this point. we also checked myasthenia antibodies which are pending. The patient's symptoms have improved every day. Today there fairly minimal and improving resolving. On exam, I did not see any extraocular movement abnormalities. No other cranial nerve findings. No motor findings. She has a nonfocal exam. I did review the literature of Revlimid - which can be uncommonly associated with peripheral neuropathies. Therefore an adverse effect from chemotherapy is still on the differential diagnosis. overall, I do not recommend further testing now as her diplopia/symptoms are resolving. I will see her as an outpatient in approximately 4 weeks to follow up the myasthenia antibody panel. We will sign off and follow up as needed. Please do not hesitate to call if there is any change in her neurologic status and we will reassess. Subjective: Double vision is resolving Objective: Vital Signs Temp Pulse Resp BP Pulse Ox 36.8 C 80 18 127/66 H 92 07/20/16 15:24 07/20/16 15:24 07/20/16 15:24 07/20/16 15:24 07/20/16 15:24 Laboratory Results 07/20/16 05:31 07/20/16 05:31 07/19/16 07/20/16 07/21/16 05:59 05:59 05:59 Intake Total 2698 4561 Balance 2698 4561 PT 14.0 SEC (12.0-15.0) 07/19/16 16:05 INR 1.09 (0.83-1.16) 07/19/16 16:05 no extraocular movement abnormalities cranial nerve exam is normal motor exam is normal higher mental function is normal, no aphasia Allergies/Adverse Reactions: No Known Allergies Allergy (Unverified 07/17/16 21:50)
--- NOTE | 2016-07-20 19:27 | SOAPPROG ---
ANGELITA Progress Note Assessment/Plan: Assessment: 76 FEMALE WITH SEVERE LEFT COLITIS SEEN ON CT WITH ELEVATED LACTATE AND WBC 15K TENDER RLQ/ HAVING BLOODY STOOLS/ NO PRIOR HX ON CHEMO FOR MYELOMA PREVIOUS ISAÍAS AND BSO WITH CYSTOCELE, TKA/ NO CARDIAC HX AND NO AFIB EXCELLENT PULSES THRUOUT/ CT SHOWS OCCLUDED SHARMIN I BELIEVE HIGH RISK SHE WILL NEED COLECTOMY PROBABLE ISCHEMIC COLITIS Plan: OBS ON ABX/ IVS/ NPO/ PROB FLEX SIG 07/18/16 03:23 07/19/16 07:58 AFEBRILE/ ABD STABLE/ WBC IMPROVED/ UNDERGOING VO FOR NEURO SX 07/20/16 19:26 SEEN EARLIER TODAY / PATIENT DOING MUCH BETTER WITH SOLID BOWEL MOVEMENTS WITHOUT SIGNIFICANT BLEEDING / SHE DENIES MUCH OF ANY PAIN OR DISCOMFORT / ABDOMEN IS SOFT WITH MUCH LESS TENDERNESS BUT IS STILL DISTENDED / OVERALL SHE SEEMS QUITE IMPROVED WITH A NORMAL WHITE COUNT AND AFEBRILE Objective: Vital Signs Temp Pulse Resp BP Pulse Ox 36.8 C 80 18 127/66 H 92 07/20/16 15:24 07/20/16 15:24 07/20/16 15:24 07/20/16 15:24 07/20/16 15:24 Laboratory Results 07/20/16 05:31 07/20/16 05:31 07/19/16 07/20/16 07/21/16 05:59 05:59 05:59 Intake Total 1498 7821 2438 Balance 2698 4561 2431 PT 14.0 SEC (12.0-15.0) 07/19/16 16:05 INR 1.09 (0.83-1.16) 07/19/16 16:05 ICD10 Worksheet Patient Problems: Problems Problem Status Diagnosed Colitis Acute
--- NOTE | 2016-07-20 20:16 | HOSPPROG ---
Hospitalist Progress Note Assessment/Plan: # Acute severe colitis - CT ( personally reviewed and interpreted) severe colitis of the descending and sigmoid colon gastroenterology and surgery consulting - clinically much improved today tolerated clears all day without nausea or vomiting - stools forming no blood - continue IV antibiotics - advance to light diet # acute double vision- new diagnosis overnight- MRI brain (personally reviewed and interpreted) no evidence of acute infarct or mass symptom continued to improve- CSF studies benign - myasthenia studies pending - per neurology revlimid still a possible cause - will follow with neuro outpatient # history of multiple myeloma- being treated outpatient with Revlimid - holding chemotherapy # recent steroid use with chemotherapy- held since admission - will continue to watch closely for any adrenal insufficiency # history of DVT- holding Xarelto secondary to acute GI bleed with colitis- oxygen saturations 94% on RA case discussed with Dr Campbell - says Revlimid can cause thrombotic events and she will be taken off it. - GI is cleared for Lovenox prophylaxis # prophylaxis Lovenox- however walking regularly # diet clear liquids advance per surgery and Gastroenterology # disposition - possbily tomorrow if continues to improve I have discussed the case with Dr. Grajeda - patient stable for floor transfer today Subjective: tolerating light diet this afternoon Objective: Vital Signs Temp Pulse Resp BP Pulse Ox 36.9 C 73 18 113/55 L 88 L 07/20/16 20:00 07/20/16 20:00 07/20/16 20:00 07/20/16 20:00 07/20/16 20:00 Laboratory Results 07/20/16 05:31 07/20/16 05:31 07/19/16 07/20/16 07/21/16 05:59 05:59 05:59 Intake Total 2698 4561 2436 Balance 2698 4561 2436 PT 14.0 SEC (12.0-15.0) 07/19/16 16:05 INR 1.09 (0.83-1.16) 07/19/16 16:05 - Physical Exam Constitutional: appears nourished Eyes: anicteric sclera Ears, Nose, Mouth, Throat: moist mucous membranes Cardiovascular: regular rate and rhythym Respiratory: no respiratory distress Gastrointestinal: normoactive bowel sounds, soft, non-tender abdomen Genitourinary: no bladder fullness Skin: warm Musculoskeletal: No asymmetric calves Psychiatric: interacting appropriately Lymph, Heme, Immunologic: no cervical LAD ICD10 Worksheet Patient Problems: Problems Problem Status Diagnosed Colitis Acute
[2016-07-21 05:23] LABS: HEMATOCRIT 36.8 % (38.0-47.0); HEMOGLOBIN 12.2 g/dL (12.6-16.3); MEAN CELL HEMOGLOBIN 32.3 pg (27.9-34.1); MEAN CELL HEMOGLOBIN CONCENTR. 33.2 g/dL (32.4-36.7); MEAN CELL VOLUME 97.4 fL (81.5-99.8); RED BLOOD CELL COUNT 3.78 10^6/uL (4.18-5.33); RED CELL DISTRIBUTION WIDTH 13.5 % (11.5-15.2)
[2016-07-21 08:11] VITALS: BP 126/69; PULSE 74; RESP 18; TEMP 97.1; O2SAT 94
[2016-07-21] MEDS: ERTAPENEM 1 GM in NS 100 ML IV SCH (08:54)
[2016-07-21] MEDS: LISINOPRIL 20 MG TAB PO SCH (09:00)
[2016-07-21] MEDS: PRAVASTATIN SODIUM 20 MG TAB PO SCH (09:00)
--- NOTE | 2016-07-21 09:59 | SOAPPROG ---
SOAP Progress Note Assessment/Plan: Assessment: 76yo female with colitis, multiple myeloma tolerating regular diet, small normal BM, no pain PE appears well abdomen very soft nontender throughout Plan saw pt with Dr Javed ok to d/c with f/u next week in our office 07/21/16 09:57 Objective: Vital Signs Temp Pulse Resp BP Pulse Ox 36.2 C 74 18 126/69 H 94 07/21/16 08:00 07/21/16 08:00 07/21/16 08:00 07/21/16 08:00 07/21/16 08:00 Laboratory Results 07/21/16 04:55 07/20/16 05:31 07/20/16 07/21/16 07/22/16 05:59 05:59 05:59 Intake Total 4561 2436 Balance 4561 2436 PT 14.0 SEC (12.0-15.0) 07/19/16 16:05 INR 1.09 (0.83-1.16) 07/19/16 16:05 ICD10 Worksheet Patient Problems: Problems Problem Status Diagnosed Colitis Acute
--- NOTE | 2016-07-21 11:51 | SOAPPROG ---
ANGELITA Progress Note Assessment/Plan: Assessment: 76 FEMALE WITH SEVERE LEFT COLITIS SEEN ON CT WITH ELEVATED LACTATE AND WBC 15K TENDER RLQ/ HAVING BLOODY STOOLS/ NO PRIOR HX ON CHEMO FOR MYELOMA PREVIOUS ISAÍAS AND BSO WITH CYSTOCELE, TKA/ NO CARDIAC HX AND NO AFIB EXCELLENT PULSES THRUOUT/ CT SHOWS OCCLUDED SHARMIN I BELIEVE HIGH RISK SHE WILL NEED COLECTOMY PROBABLE ISCHEMIC COLITIS Plan: OBS ON ABX/ IVS/ NPO/ PROB FLEX SIG 07/18/16 03:23 07/19/16 07:58 AFEBRILE/ ABD STABLE/ WBC IMPROVED/ UNDERGOING VO FOR NEURO SX 07/20/16 19:26 SEEN EARLIER TODAY / PATIENT DOING MUCH BETTER WITH SOLID BOWEL MOVEMENTS WITHOUT SIGNIFICANT BLEEDING / SHE DENIES MUCH OF ANY PAIN OR DISCOMFORT / ABDOMEN IS SOFT WITH MUCH LESS TENDERNESS BUT IS STILL DISTENDED / OVERALL SHE SEEMS QUITE IMPROVED WITH A NORMAL WHITE COUNT AND AFEBRILE Objective: Vital Signs Temp Pulse Resp BP Pulse Ox 36.2 C 74 18 126/69 H 94 07/21/16 08:00 07/21/16 08:00 07/21/16 08:00 07/21/16 08:00 07/21/16 08:00 Laboratory Results 07/21/16 04:55 07/20/16 05:31 07/20/16 07/21/16 07/22/16 05:59 05:59 05:59 Intake Total 4561 2436 Balance 4561 2436 PT 14.0 SEC (12.0-15.0) 07/19/16 16:05 INR 1.09 (0.83-1.16) 07/19/16 16:05 ICD10 Worksheet Patient Problems: Problems Problem Status Diagnosed Colitis Acute
--- NOTE | 2016-07-21 18:03 | GDS ---
[f rep st] DISCHARGE SUMMARY DISCHARGE DIAGNOSES: Include: 1. Acute severe colitis of the descending and sigmoid colon. 2. Acute double vision. 3. History of multiple myeloma, on Revlimid. 4. History of deep venous thrombosis. HISTORY OF PRESENT ILLNESS: This is a 76-year-old female with a history of multiple myeloma receivin g outpatient Revlimid, who presented with complaints of abdominal pain. For details of the patient's initial presentation, please see the history and physical dated 07/18/2016. CONSULTATIVE SERVICES ON THIS PATIENT: Include: 1. General Surgery, Dr. Javed. 2. Gastroenterology. 3. Neurology. PROCEDURES ON THIS PATIENT: On 07/17/2016, patient had a CT of the abdomen which showed severe nonsp ecific colitis of the descending and sigmoid colon. On 07/18/2016, patient had an MRI of the brain w hich showed possible skull lesions related to her multiple myeloma, no acute strokes. On 07/19/2016, patient had a lumbar puncture. HOSPITAL COURSE BY ISSUE: 1. Severe nonspecific colitis, thought secondary to the patient's Revlimid treatment: Patient was ad mitted, treated with aggressive supportive care, and monitored by Surgery and Gastroenterology. She responded well to IV antibiotics, IV fluids, and bowel rest. Slowly titrated up to a normal diet on the day of disposition. She is to follow in the outpatient setting with Gastroenterology for a colon oscopy after completion of treatment for colitis, as well as with Oncology. 2. Acute double vision: This is a new neurologic finding for this patient. She was evaluated for a cute stroke and seen by Neurology, who felt the differential likely included either cranial nerve pal sy potentially related to her multiple myeloma or possible myasthenia gravis. Several laboratory powell els have been sent, including analysis of her CSF which was benign. She is to follow in the outpatie nt setting with Neurology. On the day disposition, her symptoms had nearly resolved. 3. History of DVT: Case was reviewed with her outpatient oncologist, who felt the Xarelto she was t aking should be discontinued. We have stopped this at discharge for Dr. Campbell to follow in the ou tpatient setting. MEDICATIONS AT THE TIME OF DISPOSITION: Please reference medication reconciliation printed on 2016. PENDING STUDIES AT THE TIME OF THIS DICTATION: Include workup for myasthenia gravis. FOLLOWUP APPOINTMENTS FOR THIS PATIENT: Include: 1. With Neurology outpatient for results of her inpatient analysis. 2. With Dr. Campbell for ongoing treatment choices related to her myasthenia gravis. 3. With Dr. Costa, her outpatient load dispatcher, for repeat colonoscopy and monitoring of her co litis post disposition. I spent greater than 30 minutes in the planning and coordination of this discharge. /[id number]/MODL
[2016-08-02 14:12] LABS: ACH RECEPTOR (MUSCLE) MODULATE 0 % (()); MG INTERPRETIVE COMMENTS See Comments (()); STRIATED MUSCLE ANTIBODIES Negative titer (<1:120)
== END 2016-07-21 10:39 | disposition home or self-care (01) | DRG 394 ==
LOC: F2N 07-18 03:42 → F3E 07-20 21:54
PROVIDERS: ADMIT Student in an Organized Health Care Education/Training Program; ATTEND Student in an Organized Health Care Education/Training Program
PROC: 009U3ZX Drainage of Spinal Canal, Percutaneous Approach, Diagnostic (ICD-10-PCS; principal; 2016-07-19)
DX: K52.1 Toxic gastroenteritis and colitis (principal); C90.00 Multiple myeloma not having achieved remission; T45.1X5A Adverse effect of antineoplastic and immunosuppressive drugs, initial encounter; H53.2 Diplopia; I10 Essential (primary) hypertension; E78.5 Hyperlipidemia, unspecified; Z86.718 Personal history of other venous thrombosis and embolism; Z79.01 Long term (current) use of anticoagulants
CPT/HCPCS: 96374; J0744; J1335; J2405; J2550; Q9967

== ENCOUNTER → 2016-10-21 | Outpatient (CLI) | payer OTHER | LOC: BRMIMAGING 13:17 | PROVIDERS: ATTEND Internal Medicine Hematology & Oncology | DX: M81.0 Age-related osteoporosis without current pathological fracture (principal); Z78.0 Asymptomatic menopausal state; Z90.710 Acquired absence of both cervix and uterus; Z90.721 Acquired absence of ovaries, unilateral; Z85.79 Personal history of other malignant neoplasms of lymphoid, hematopoietic and related tissues ==

== ENCOUNTER → 2017-01-27 | Outpatient (CLI) | payer OTHER | LOC: BRMIMAGING 11:07 | PROVIDERS: ATTEND Family Medicine | DX: Z12.31 Encounter for screening mammogram for malignant neoplasm of breast (principal) | CPT/HCPCS: G0202 ==

== ENCOUNTER → 2018-10-18 | Outpatient (CLI) | payer OTHER | LOC: BRMIMAGING 09:39 | PROVIDERS: ATTEND Internal Medicine Hematology & Oncology | DX: Z13.820 Encounter for screening for osteoporosis (principal); M85.89 Other specified disorders of bone density and structure, multiple sites; Z78.0 Asymptomatic menopausal state; Z98.1 Arthrodesis status; Z87.81 Personal history of (healed) traumatic fracture ==

== ENCOUNTER → 2018-12-14 | Outpatient (CLI) | payer OTHER | LOC: FIMAGING 10:25 ==